=== PATIENT | female | born 1990 | race Caucasian/White ===

== ENCOUNTER 2017-10-10 05:34 | Inpatient (IN) | payer OTHER ==
[~2017-10-10] VITALS: Ht 167.6 cm; Wt 97.5 kg
[2017-10-10] MEDS ORDERED: PRENATAL TABLE1 EAC1 PO (05:45)
== END 2017-10-12 20:02 | DRG 774 ==
LOC: LDR 05:34 → OB/GYN 05:34
PROC: 0KQM0ZZ Repair Perineum Muscle, Open Approach (ICD-10-PCS; principal; 2017-10-10)
PROC: 0UQGXZZ Repair Vagina, External Approach (ICD-10-PCS; 2017-10-10)
PROC: 10E0XZZ Delivery of Products of Conception, External Approach (ICD-10-PCS; 2017-10-10)
PROC: 4A1HXCZ Monitoring of Products of Conception, Cardiac Rate, External Approach (ICD-10-PCS; 2017-10-10)
DX: O70.1 Second degree perineal laceration during delivery (principal); O71.4 Obstetric high vaginal laceration alone; O98.513 Other viral diseases complicating pregnancy, third trimester; O99.513 Diseases of the respiratory system complicating pregnancy, third trimester; O42.92 Full-term premature rupture of membranes, unspecified as to length of time between rupture and onset of labor; O69.81X0 Labor and delivery complicated by cord around neck, without compression, not applicable or unspecified; Z37.0 Single live birth; Z3A.39 39 weeks gestation of pregnancy